=== PATIENT | male | born 1970 | race Caucasian/White ===

== ENCOUNTER 2016-09-24 02:11 | Emergency (ER) | payer MEDICARE, OTHER ==
[~2016-09-24] VITALS: Ht 180.3 cm; Wt 127.0 kg
[~2016-09-24 02:11] MED LIST: CLOB-50 TOP; HYDR10TA65 PO; LEVO137T2 PO; LISI-515 PO; TEST1INJ3 IM
[2016-09-24 02:15] VITALS: BP 172/99; PULSE 83; RESP 16; TEMP 97.7; O2SAT 98
[2016-09-24] MEDS ORDERED: MOBI15TA PO (02:33)
[2016-09-24] MEDS ORDERED: DOXY100C PO (02:33)
--- NOTE | 2016-09-24 03:06 | PD ---
HPI Chief Complaint: Cold / Flu Symptoms Time Seen by Provider: 03:01 Travel History International Travel<30 days: No Contact w/Intl Traveler<30days: No Traveled to known affect area: No History of Present Illness HPI 46-year-old white male presents to emergency department accompanied by his mother for evaluation of sore throat. He states that he's been sick now for nearly 2 weeks. He has had postnasal drip, sinus congestion, sore throat, cough with green sputum, pleuritic chest wall pain, myalgias, arthralgias and general malaise. He was seen at an urgent care 3 days ago and has been on doxycycline. He states that he felt as if his throat was closing up and getting worse this evening. He denies any fever chills. He's been able to handle his secretions well. No nausea vomiting. No abdominal pain or diarrhea. No shortness of breath or wheezing. PFSH Past Medical History Autoimmune Disease: No Heart Rhythm Problems: No Cancer: No Cardiac Catheterization: No Cardiovascular Problems: Yes (HTN) High Cholesterol: Yes Chest Pain: No Congestive Heart Failure: No Cerebrovascular Accident: No Diabetes: Yes Diminished Hearing: No Endocrine: Yes GERD: No Genitourinary: No Hiatal Hernia: No Hypertension: Yes Immune Disorder: Yes (Psoriasis) Musculoskeletal: Yes (RIGHT SIDED WEAKNESS) Neurologic: Yes (Pituitary tumor S/P resection times 2 ) Psychiatric: No Reproductive: No Respiratory: No Migraines: No Seizures: No Thyroid Disease: Yes (hypothyroidism) Ulcer: No Past Surgical History Abdominal Surgery: No Body Medical Devices: STANTS IN THE RIGHT SIDE OF THE BRAIN Cardiac Surgery: No Coronary Artery Bypass Graft: No Ear Surgery: No Endocrine Surgery: No Eye Surgery: No Genitourinary Surgery: No Gynecologic Surgery: No Neurologic Surgery: Yes ([facility]ANG[facility] December.[facility], STS 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) Oral Surgery: No Pacemaker: No Thoracic Surgery: No Other Surgery: Yes (2nd brain surgery removal benign tumor on november 01 2008 ) Social History Alcohol Use: No Tobacco Use: No Substance Use: No Allergies-Medications (Allergen,Severity, Reaction): Coded Allergies: Aspirin (Verified Allergy, Severe, SWELLING, 09/24/16) Reported Meds & Prescriptions Reported Meds & Active Scripts Active Reported Doxycycline Hyclate 100 Mg Cap 100 Mg PO BID Mobic (Meloxicam) 15 Mg Tab 15 Mg PO DAILY Testosterone Cypionate Inj (Testosterone Cypionate) 100 Mg/Ml Inj 100 Mg IM TWICE MONTHLY Lisinopril 20 Mg Tab 20 Mg PO DAILY Levothyroxine (Levothyroxine Sodium) 137 Mcg Tab 137 Mcg PO DAILY Hydrocortisone 10 Mg Tab 10 Mg PO DAILY Take with food to decrease GI upset Review of Systems Except as stated in HPI: all other systems reviewed are Neg Physical Exam Narrative GENERAL: Well-developed, well-nourished in no acute distress. Nontoxic appearing. HEAD: There is slight deformity of the left forehead and scalp. EYES: Patient's left eye deviates temporally. Extraocular movements are discordant. The right eye is intact. ENT: TMs clear without erythema. The external auditory canals clear. Nose: clear . Posterior pharynx is erythematous with mild edema of the tonsils and uvula. There is no exudate. He is handling his secretions well. Normal voice. There is no obvious pharyngeal edema. Uvula midline. Airway patent. NECK: Trachea midline.Supple, nontender, moves head freely. No central bony tenderness or spasm. CARDIOVASCULAR: Regular rate and rhythm without murmurs, gallops, or rubs. RESPIRATORY: Clear to auscultation. Breath sounds equal bilaterally. No wheezes , rales, or rhonchi. GASTROINTESTINAL: Abdomen soft, non-tender, nondistended. No hepato-splenomegaly , or palpable masses. No guarding. EXTREMITIES: No clubbing, cyanosis, or edema. No joint tenderness, effusion, or edema noted. BACK: Nontender without deformity or crepitance. No flank tenderness. Data Data Last Documented VS Vital Signs Date Time Temp Pulse Resp B/P Pulse Ox O2 Delivery O2 Flow Rate FiO2 09/24/16 02:15 97.7 83 16 172/99 98 Room Air Orders Group A Rapid Strep Screen (09/24/16 02:52) Strep Culture (Group A) (09/24/16 02:54) MDM Medical Decision Making Medical Screen Exam Complete: Yes Emergency Medical Condition: Yes Medical Record Reviewed: Yes Interpretation(s) Rapid strep: Negative Differential Diagnosis MDM: High Differential diagnoses: Strep throat, viral pharyngitis, mono, peritonsillar abscess, retropharyngeal abscess, Bernard's angina, bronchitis Narrative Course The patient's rapid strep is negative. This is bronchitis Diagnosis Primary Impression: Bronchitis Patient Instructions: General Instructions Additional Instructions: Rest. Continue your antibiotics. Prednisone. Saltwater gargles. Chloraseptic [place]. Zyrtec D or Claritin D Follow-up with a medical doctor in one week. Med/Other Pt SpecificInfo: Prescription(s) given Scripts Prednisone (Deltasone)20 Mg Tab20 Mg PO TID #15 TAB Prov:Linsey Willson MD 09/24/16 Disposition: 01 DISCHARGE HOME Condition: Stable Terry Sullivan Sep 24, 2016 03:06
[2016-09-24] MEDS ORDERED: PRED-503 PO (03:29)
== END 2016-09-24 03:39 | disposition home or self-care (01) ==
LOC: NEPB 02:11
DX: J40 Bronchitis, not specified as acute or chronic (principal); E03.9 Hypothyroidism, unspecified; I10 Essential (primary) hypertension; E78.00 Pure hypercholesterolemia, unspecified; E11.9 Type 2 diabetes mellitus without complications
CPT/HCPCS: 87081; 87880; 99283

== ENCOUNTER 2016-09-28 20:54 | Emergency (ER) | payer MEDICARE, OTHER ==
[~2016-09-28] VITALS: Ht 180.3 cm; Wt 130.0 kg
[~2016-09-28 20:54] MED LIST changes: -CLOB-50 TOP; +DOXY100C PO; +MOBI15TA PO; +PRED-503 PO
[2016-09-28 21:07] VITALS: BP 211/111; PULSE 78; RESP 18; TEMP 97.6; O2SAT 96
[2016-09-28] MEDS ORDERED: hydrALAZINE HCL 20 MG/ML VIAL IV PUSH ONE (22:15)
[2016-09-28] MEDS ORDERED: SODIUM CHLORIDE 0.9% FLUSH 10 ML FLUSH IVF PRN (22:15)
--- NOTE | 2016-09-28 22:19 | PD ---
HPI Chief Complaint: Hypertension Time Seen by Provider: 22:05 Travel History International Travel<30 days: No Contact w/Intl Traveler<30days: No Traveled to known affect area: No History of Present Illness HPI 46-year-old male presents to the emergency department by private transportation in the care of family for evaluation of uncontrolled hypertension. Patient has long-standing history of hypertension and is prescribed lisinopril which she takes daily. He took an additional dose of lisinopril today. Patient also took acetaminophen today. Patient more recently has been on antibiotic doxycycline and prednisone for a respiratory illness/bronchitis. Patient also has psoriatic disease. Patient only takes topical medication for psoriasis. Patient is also noted some headache 6/10 in intensity frontal over the past day. Patient denies any confusion, change in mentation, sudden onset thunderclap or worst ever headache, also denies any visual disturbance speech disturbance neck pain chest pain or jaw pain midscapular pain upper or lower extremity numbness tingling weakness or pain abdominal pain and no gait ataxia. Patient is followed by Dr. Palomo as his primary care provider and Dr. Choe as his leadership intern for hypertension. Patient has had a normal stress test within the past year. Patient denies any chest pain or palpitations or sweats. Patient's had no nausea or vomiting. Patient's had no shortness of breath. Patient admits to dietary indiscretion with increasing fast food consumption such as pizza and fast food cheeseburgers. Patient notes that his dietary sodium has significantly improved increased consumption. Patient is not diabetic. 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 Patient does not report a seizure disorder at this time but was on seizure medication in the past post operatively. [facility] Past Medical History Narrative Medical Hypertension dyslipidemia pituitary tumor hemangioma seizure blindness left eye hypothyroidism psoriasis; no alcohol use no tobacco use; nursing notes reviewed Autoimmune Disease: No Heart Rhythm Problems: No Cancer: No Cardiac Catheterization: No Cardiovascular Problems: Yes (HTN) High Cholesterol: Yes Chest Pain: No Congestive Heart Failure: No Cerebrovascular Accident: No Diabetes: No Diminished Hearing: No Endocrine: Yes GERD: No Genitourinary: No Hiatal Hernia: No Hypertension: Yes Immune Disorder: Yes (Psoriasis) Musculoskeletal: Yes (RIGHT SIDED WEAKNESS) Neurologic: Yes (Pituitary tumor S/P resection times 2 ) Psychiatric: No Reproductive: No Respiratory: No Migraines: No Seizures: No Thyroid Disease: Yes (hypothyroidism) Ulcer: No Past Surgical History Abdominal Surgery: No Body Medical Devices: STANTS IN THE RIGHT SIDE OF THE BRAIN Cardiac Surgery: No Coronary Artery Bypass Graft: No Ear Surgery: No Endocrine Surgery: No Eye Surgery: No Genitourinary Surgery: No Gynecologic Surgery: No Neurologic Surgery: Yes ([facility]ANG[facility]OMA December.[facility], STS 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) Oral Surgery: No Pacemaker: No Thoracic Surgery: No Other Surgery: Yes (2nd brain surgery removal benign tumor on november 01 2008 ) Social History Alcohol Use: No Tobacco Use: No Substance Use: No Allergies-Medications (Allergen,Severity, Reaction): Coded Allergies: Aspirin (Verified Allergy, Severe, SWELLING, 09/28/16) Reported Meds & Prescriptions Reported Meds & Active Scripts Active Deltasone (Prednisone) 20 Mg Tab 20 Mg PO TID Reported Doxycycline Hyclate 100 Mg Cap 100 Mg PO BID Mobic (Meloxicam) 15 Mg Tab 15 Mg PO DAILY Testosterone Cypionate Inj (Testosterone Cypionate) 100 Mg/Ml Inj 100 Mg IM TWICE MONTHLY Lisinopril 20 Mg Tab 20 Mg PO DAILY Levothyroxine (Levothyroxine Sodium) 137 Mcg Tab 137 Mcg PO DAILY Hydrocortisone 10 Mg Tab 10 Mg PO DAILY Take with food to decrease GI upset Review of Systems Except as stated in HPI: all other systems reviewed are Neg General / Constitutional: No: Fever, Chills Eyes: No: Diploplia, Blurred Vision, Photophobia HENT: Positive: Headaches, No: Vertigo, Lightheadedness, Neck Stiffness, Neck Pain Cardiovascular: No: Chest Pain or Discomfort, Palpitations, Diaphoresis, Syncope, Dyspnea on exertion Respiratory: No: Shortness of Breath Gastrointestinal: No: Nausea, Vomiting, Abdominal Pain Genitourinary: No: Flank Pain Musculoskeletal: No: Myalgias, Arthralgias, Weakness, Edema, Pain Skin: Positive Rash (chronic psoriatic lesionsdiffuse) Neurologic: Positive: Headache, No: Weakness, Dizziness, Syncope, Focal Abnormalities, Coordination Problem, Ataxia, Change in Mentation, Slurred Speech , Paresthesia, Seizures, Sensory Disturbance Psychiatric: No: Anxiety Endocrine: No: Heat Intolerance Hematologic/Lymphatic: No: Easy Bruising Physical Exam Narrative GENERAL: Well-developed well-nourished male in no acute distress no respiratory distress; GCS 15 SKIN: Warm and dry. Diffuse psoriatic cutaneous changes. HEAD: Atraumatic. Normocephalic. EYES: Right pupil equal and round. Previous left eye injury related to previous pituitary surgery. No scleral icterus. No injection or drainage. ENT: No nasal bleeding or discharge. Mucous membranes pink and moist. Airway is patent. NECK: Trachea midline. No JVD. Supple no meningismus no nuchal rigidity. CARDIOVASCULAR: Regular rate and rhythm. RESPIRATORY: No accessory muscle use. Clear to auscultation. Breath sounds equal bilaterally. GASTROINTESTINAL: Abdomen soft, non-tender, nondistended. Hepatic and splenic margins not palpable. MUSCULOSKELETAL: Extremities without clubbing, cyanosis, or edema. No obvious deformities. NEUROLOGICAL: Awake and alert. GCS 15. No obvious cranial nerve deficits. Motor grossly within normal limits. Five out of 5 muscle strength in the arms and legs. Normal speech. PSYCHIATRIC: Appropriate mood and affect; insight and judgment normal. Data Data Last Documented VS Vital Signs Date Time Temp Pulse Resp B/P Pulse Ox O2 Delivery O2 Flow Rate FiO2 09/28/16 23:00 75 183/108 09/28/16 22:19 Nasal Cannula 2 09/28/16 21:07 97.6 18 96 Orders Electrocardiogram (09/28/16 22:03) Basic Metabolic Panel (Bmp) (09/28/16 22:03) Ckmb (Isoenzyme) Profile (09/28/16 22:03) Complete Blood Count With Diff (09/28/16 22:03) Magnesium (Mg) (09/28/16 22:03) Prothrombin Time / Inr (Pt) (09/28/16 22:03) Act Partial Throm Time (Ptt) (09/28/16 22:03) Troponin I (09/28/16 22:03) Chest, Single Ap (09/28/16 22:03) Ecg Monitoring (09/28/16 22:03) Bilateral Bp Monitoring (09/28/16 22:03) Iv Access Insert/Monitor (09/28/16 22:03) Oximetry (09/28/16 22:03) Oxygen Administration (09/28/16 22:03) Sodium Chloride 0.9% Flush (Ns Flush) (3/24/17 22:15) Ct Brain W/O Iv Contrast(Rout) (09/28/16 ) Hydralazine Inj (Apresoline Inj) (09/28/16 22:15) Acetaminophen (Tylenol) (09/28/16 22:45) Clonidine (Catapres) (09/28/16 23:45) Labs Laboratory Tests Test 09/28/16 21:55 White Blood Count 14.0 TH/MM3 Red Blood Count 5.59 MIL/MM3 Hemoglobin 13.8 GM/DL Hematocrit 42.3 % Mean Corpuscular Volume 75.8 FL Mean Corpuscular Hemoglobin 24.6 PG Mean Corpuscular Hemoglobin 32.5 % Concent Red Cell Distribution Width 20.7 % Platelet Count 379 TH/MM3 Mean Platelet Volume 7.9 FL Neutrophils (%) (Auto) 78.4 % Lymphocytes (%) (Auto) 12.0 % Monocytes (%) (Auto) 8.7 % Eosinophils (%) (Auto) 0.5 % Basophils (%) (Auto) 0.4 % Neutrophils # (Auto) 11.0 TH/MM3 Lymphocytes # (Auto) 1.7 TH/MM3 Monocytes # (Auto) 1.2 TH/MM3 Eosinophils # (Auto) 0.1 TH/MM3 Basophils # (Auto) 0.1 TH/MM3 CBC Comment AUTO DIFF Differential Total Cells 100 Counted Neutrophils % (Manual) 76 % Lymphocytes % 16 % Monocytes % 6 % Neutrophils # (Manual) 10.9 TH/MM3 Metamyelocytes 1 % Myelocytes 1 % Nucleated Red Blood Cells 1 /100 WBC Differential Comment FINAL DIFF MANUAL Platelet Estimate HIGH Platelet Morphology Comment NORMAL Prothrombin Time 10.7 SEC Prothromb Time International 1.0 RATIO Ratio Activated Partial 24.9 SEC Thromboplast Time Sodium Level 138 MEQ/L Potassium Level 3.9 MEQ/L Chloride Level 100 MEQ/L Carbon Dioxide Level 27.8 MEQ/L Anion Gap 10 MEQ/L Blood Urea Nitrogen 23 MG/DL Creatinine 1.03 MG/DL Estimat Glomerular Filtration 78 ML/MIN Rate Random Glucose 118 MG/DL Calcium Level 9.5 MG/DL Magnesium Level 2.2 MG/DL Total Creatine Kinase 88 U/L Troponin I LESS THAN 0.02 NG/ML MDM Medical Decision Making Medical Screen Exam Complete: Yes Emergency Medical Condition: Yes Medical Record Reviewed: Yes Interpretation(s) EKG: Normal sinus rhythm rate [address] elevation or injury pattern change noted age-indeterminate QS inferiorly artifact present at baseline Last Impressions Chest X-Ray 09/28/16 2203 Signed Impressions: Service Date/Time: Wednesday, September 28, 2016 22:18 - CONCLUSION: No acute disease. Emanuel Sibley MD Head CT 09/28/16 0000 Signed Impressions: Service Date/Time: Wednesday, September 28, 2016 22:15 - CONCLUSION: Abnormal brain appearance. We have no comparison exams which will be needed for useful evaluation of residual versus recurrent intracranial neoplastic disease. No evidence of intracranial hemorrhage. Emanuel Sibley MD CBC & BMP Diagram 09/28/16 21:55 Differential Diagnosis Uncontrolled hypertension, hypertensive urgency, hypertensive crisis, CVA, aortic dissection Narrative Course Patient placed on air sampling and monitoring IV access obtained specimens collected and sent for resulting EKG performed which is consistent with sinus rhythm rate of [address] elevation or injury pattern change or ectopy Q wave is noted in the 3 age-indeterminate. Patient reports that he took lisinopril 20 mg 2 doses today. Patient ordered to receive hydralazine 10 mg IV. Patient clinically improved continues to have elevated blood pressure clonidine 0.1 mg administered; headache is 5/10 intensity but again denies it being sudden onset thunderclap or worst ever. Patient is currently taking doxycycline and has not had his evening dose of antibiotic for his respiratory illness. Patient has just completed his 5 day course of prednisone today. CBC is automated differential shows leukocytosis of most likely reflects stress demargination, dehydration, steroid therapy, and respiratory illness. Manual differential shows mild left shift 76% without bandemia. At 12:30 AM patient is clinically improved and stable for outpatient management. Diagnosis Primary Impression: Hypertension Qualified Code: I10 - Essential hypertension Referrals: Primary Care Physician 2 days Patient Instructions: General Instructions Additional Instructions: Follow-up with primary care provider call office on Saturday to schedule follow- up appointment Return to the emergency department for any concerns or change in condition Complete course of antibiotic as prescribed Continue current blood pressure medication as prescribed Use no blood pressure medication as prescribed as needed do not take daily Increase fluid hydration Avoid dietary salt intake Med/Other Pt SpecificInfo: Prescription(s) given Scripts Clonidine 0.2 Mg Tab0.2 Mg PO BID PRN (SBP>180, DBP>95) #7 TAB Ref 0 Prov:Linsey Willson MD 09/29/16 Clonidine 0.1 Mg Tab0.1 Mg PO BID #60 TAB Ref 0 Prov:Linsey Willson MD 09/29/16 Disposition: 01 DISCHARGE HOME Condition: Stable Linsey Willson MD Sep 28, 2016 22:18
--- NOTE | 2016-09-28 22:29 | RADRPT ---
EXAM DATE/TIME: 09/28/2016 22:18 [facility] COMPARISON: CHEST SINGLE AP, July 14, 2015, 16:00. INDICATIONS : Chest pain. MEDICAL HISTORY : Hypertension. SURGICAL HISTORY : None. ENCOUNTER: Initial ACUITY: 1 day PAIN SCORE: 4/10 LOCATION: chest FINDINGS: A single view of the chest demonstrates the lungs to be symmetrically aerated without evidence of mas s, infiltrate or effusion. The cardiomediastinal contours are unremarkable. Osseous structures are intact. Ventriculoperitoneal shunt tubing traverses the medial right chest CONCLUSION: No acute disease. Emanuel Sibley MD on September 28, 2016 at 22:28 Board Certified Radiologist. This report was verified electronically.
[2016-09-28 22:41] LABS: BASOPHIL # 0.1 TH/MM3 (0-0.2); BASOPHIL % 0.4 % (0.0-2.0); EOSINOPHIL # 0.1 TH/MM3 (0-0.4); EOSINOPHIL % 0.5 % (0.0-4.0); HEMATOCRIT 42.3 % (39.0-51.0); LYMPHOCYTE # 1.7 TH/MM3 (1.0-4.8); MEAN CELL VOLUME 75.8 FL (80.0-100.0); MEAN CORPUSCULAR HEMOGLOBIN 24.6 PG (27.0-34.0); MEAN CORPUSCULAR HGB CONC 32.5 % (32.0-36.0); MONO % 8.7 % (0.0-8.0); NEUT % 78.4 % (16.0-70.0); PLATELET COUNT 379 TH/MM3 (150-450); RED BLOOD COUNT 5.59 MIL/MM3 (4.50-5.90); RED CELL DISTRIBUTION WIDTH 20.7 % (11.6-17.2)
--- NOTE | 2016-09-28 22:41 | RADRPT ---
EXAM DATE/TIME: 09/28/2016 22:15 [facility] COMPARISON: CHEST SINGLE AP, August 04, 2013, 16:46. INDICATIONS : Headache. RADIATION DOSE: 56.35 CTDIvol (mGy) MEDICAL HISTORY : Hypertension. SURGICAL HISTORY : Craniotomy. benign tumor removed ENCOUNTER: Initial ACUITY: 1 day PAIN SCALE: 6/10 LOCATION: cranial TECHNIQUE: Multiple contiguous axial images were obtained of the head. Using automated exposure control and adj ustment of the mA and/or kV according to patient size, radiation dose was kept as low as reasonably a chievable to obtain optimal diagnostic quality images. FINDINGS: There has been previous left frontotemporal craniotomy and zygomatic arch and lateral temporal bone r econstruction. The sphenoid wing is surgically absent as are portions of the medial skull base on thi s left side. There is left temporal encephalomalacia. Soft tissue density in the pre-pontine and cere bellopontine angle cisterns extending inferiorly into the pre-medullary cistern may be residual or re current neoplasm. Some similar density in the medial temporal region could be residual or recurrent. A ventricular shunt enters from the right frontal region and terminates with tip overlying the fronta l horn of right lateral ventricle. The right lateral ventricle is completely decompressed. There is no evidence of intracranial hemorrhage. There is nothing to separately suggest acute infarct ion. Extracranially, there is some soft tissue density in the sphenoid and left maxillary sinuses, presuma malachi mucosal disease. The left mastoids are sclerotic and opacified. CONCLUSION: Abnormal brain appearance. We have no comparison exams which will be needed for useful evaluation of residual versus recurrent intracranial neoplastic disease. No evidence of intracranial hemorrhage. Emanuel Sibley MD on September 28, 2016 at 22:29 Board Certified Radiologist. This report was verified electronically.
[2016-09-28] MEDS ORDERED: ACETAMINOPHEN 500 MG CPLT PO ONE (22:45)
[2016-09-28 22:47] LABS: HEMO FLAGS AUTO DIFF
[2016-09-28 22:50] LABS: APTT (PATIENT) 24.9 SEC (24.3-30.1); PROTHROMBIN TIME - PATIENT 10.7 SEC (9.8-11.6)
[2016-09-28 22:53] LABS: ANION GAP 10 MEQ/L (5-15); BICARBONATE 27.8 MEQ/L (21.0-32.0); BLOOD UREA NITROGEN 23 MG/DL (7-18); CHLORIDE 100 MEQ/L (98-107); GLOMERULAR FILTRATION RATE 78 ML/MIN (>89); MAGNESIUM 2.2 MG/DL (1.5-2.5); POTASSIUM 3.9 MEQ/L (3.5-5.1); SODIUM (NA) 138 MEQ/L (136-145)
[2016-09-28 22:54] LABS: CREATINE KINASE 88 U/L (39-308)
[2016-09-28 23:00] VITALS: BP 183/108; PULSE 75
[2016-09-28 23:13] LABS: CORRECTED NUCLEATED RBC 1 /100 WBC (0-0); METAMYELOCYTES 1 % (0-1); MYELOCYTES 1 % (0-0); NEUTROPHIL # MANUAL DIFF 10.9 TH/MM3 (1.8-7.7); POLYS (SEG NEUTROPHILS) 76 % (16-70); WBC DIFF SAMPLE 100
[2016-09-28 23:14] LABS: PLATELET ESTIMATE SMEAR HIGH (NORMAL); PLATELET MORPHOLOGY NORMAL (NORMAL); SCAN/DIFF FINAL DIFF MANUAL
[2016-09-28] MEDS ORDERED: cloNIDine HCL 0.1 MG TAB PO ONE (23:45)
[2016-09-29] MEDS ORDERED: CLON0.2T PO (00:28)
[2016-09-29] MEDS ORDERED: CLON0.1T PO (00:28)
--- NOTE | 2016-09-29 16:10 | EKG ---
Date Performed: 09/28/2016 Time Performed: 22:04:35 PTAGE: 46 years EKG: Sinus rhythm PROBABLE INFERIOR MYOCARDIAL INFARCTION Since previous tracing, no significant change noted ABNORMAL ECG PREVIOUS TRACING : 07/14/2015 21.49 DOCTOR: Espinoza Mccoy Interpretating Date/Time 09/29/2016 16:09:43
== END 2016-09-29 01:15 | disposition home or self-care (01) ==
LOC: NEPC 20:54
DX: I10 Essential (primary) hypertension (principal); L40.9 Psoriasis, unspecified; E78.5 Hyperlipidemia, unspecified; H54.42 Blindness, left eye, normal vision right eye; E03.9 Hypothyroidism, unspecified; E78.00 Pure hypercholesterolemia, unspecified; R94.31 Abnormal electrocardiogram [ECG] [EKG]
CPT/HCPCS: 70450; 71010; 80048; 82550; 83735; 84484; 85007; 85027; 85610; 85730; 93005; 96374; 99284; J0360